=== PATIENT | male | born 1965 | race Hispanic/Latino ===

== ENCOUNTER 2017-08-20 04:46 | Emergency (ER) | payer SELFPAY ==
[2017-08-20] MEDS ORDERED: FLUORESCEIN SODIUM 0.6 MG/WRAP ONE (05:19)
[2017-08-20] MEDS ORDERED: TETRACAINE HCL 0.5% 2ML OPTH ONE (05:19)
--- NOTE | 2017-08-20 05:24 | EDPHYS ---
Physician Documentation [facility] Name: Micah Howard Age: 52 yrs Sex: Male : 1965 Arrival Date: 08/20/2017 Time: 04:47 Bed 5 Private MD: Kirti Forbes ED Physician Ramin Gregorio HPI: 08/20 05:18 This 52 yrs old Male presents to ER via Ambulatory with complaints of Eye Pain pkl - Left. 05:18 The patient sustained a scratch. Onset: The symptoms/episode began/occurred yesterday. pkl Historical: - Allergies: 04:56 NKDA; bb - Home Meds: 04:56 None [Active]; bb - PMHx: 04:56 None; bb - PSHx: 04:56 None; bb - Immunization history:: Adult Immunizations unknown. - Social history:: Smoking status: Patient uses tobacco products, smokes one-half pack cigarettes per day, Patient uses alcohol, occasionally. Patient/guardian denies using street drugs. ROS: 05:18 ENT: Negative for injury, pain, and discharge. pkl 05:18 Eyes: Positive for blurry vision, pain, of the left eye. 05:18 Neck: Negative for stiffness. 05:18 Cardiovascular: Negative for chest pain. 05:18 Respiratory: Negative for cough, shortness of breath. 05:18 Abdomen/GI: Negative for abdominal pain, nausea, vomiting, and diarrhea. 05:18 Back: Negative for acute changes. 05:18 : Negative for urinary symptoms. 05:18 MS/extremity: Negative for acute changes. 05:18 Skin: Negative for rash. 05:18 Neuro: Negative for altered mental status. Exam: 05:18 Visual Acuity: I have reviewed the nursing documentation. pkl 05:18 Head/Face: Normocephalic, atraumatic. 05:18 Eyes: Conjunctiva: injected, in the left eye, Corneas: abrasion, that is moderate sized, approximately 3 mm(s), on the left, at 8 o'clock. 05:18 Neck: Exam negative for nuchal rigidity. 05:18 Cardiovascular: Rate: normal, Rhythm: regular. 05:18 Respiratory: the patient does not display signs of respiratory distress, Respirations: normal, Breath sounds: are clear throughout. 05:18 Abdomen/GI: Exam negative for acute changes. 05:18 Back: Exam negative for acute changes. 05:18 : Exam negative for acute changes. 05:18 Musculoskeletal/extremity: Exam is negative for acute changes. 05:18 Skin: Exam negative for rash. 05:18 Neuro: Orientation: is normal, Mentation: is normal, Cranial nerves: grossly normal, Motor: is normal. Vital Signs: 04:56 BP 142 / 106; Pulse 82; Resp 20 S; Temp 98.6(TE); Pulse Ox 99% on R/A; Weight 74.84 kg bb (R); Height 5 ft. 6 in. (167.64 cm) (R); Pain 9/10; 04:56 Body Mass Index 26.63 (74.84 kg, 167.64 cm) bb Visual Acuity: 05:11 Left Eye Visual acuity 20/100, Pupil size 3 mm, ; Right Eye Visual acuity 20/100, Pupil bb size 3 mm, ; Both Eyes Visual acuity 20/40; Without Lenses; MDM: 05:11 Patient medically screened. pkl 05:18 Data reviewed: vital signs, nurses notes. pkl Administered Medications: 05:11 Drug: Tetracaine Drops 0.5 % 1 drops Route: Ophthalmic; Site: left eye; bb 05:11 Drug: Fluorescein Strip 1 strip Route: Ophthalmic; Site: left eye; bb 05:18 Drug: Maxitrol 2 drops Route: Ophthalmic; Site: left eye; bb Disposition: 0218 05:23 Discharged to Home. Impression: Corneal abrasion left eye. - Condition is Stable. - Work release form, Medication Reconciliation Form, Thank You Letter, Antibiotic Education, Prescription Opioid Use form. - Follow up: Jazmin Monte MD; When: 2 - 3 days; Reason: Re-evaluation by your physician. - Problem is new. - Symptoms have improved. Signatures: Ramin Gregorio MD MD pkl Nathalia Horner, RN RN bb
--- NOTE | 2017-08-20 05:24 | ER ---
Nurse's Notes [facility] Name: Micah Howard Age: 52 yrs Sex: Male : 1965 Arrival Date: 08/20/2017 Time: 04:47 Bed 5 Private MD: Kirti Forbes Diagnosis: Corneal abrasion left eye Presentation: 08/20 04:53 Presenting complaint: Patient states: he got hit in the eye yesterday while playing bb kickball he thought it was just sore but when he woke up this morning it was really hurting. Transition of care: patient was not received from another setting of care. Mechanism of Injury: got hit in the eye. The patient denies any loss of vision. Onset of symptoms was August 20, 2017. Care prior to arrival: None. 04:53 Method Of Arrival: Ambulatory bb 04:53 Acuity: JACKSON 4 bb Historical: - Allergies: 04:56 NKDA; bb - Home Meds: 04:56 None [Active]; bb - PMHx: 04:56 None; bb - PSHx: 04:56 None; bb - Immunization history:: Adult Immunizations unknown. - Social history:: Smoking status: Patient uses tobacco products, smokes one-half pack cigarettes per day, Patient uses alcohol, occasionally. Patient/guardian denies using street drugs. Screenin:55 Abuse screen: Denies threats or abuse. Nutritional screening: No deficits noted. bb Tuberculosis screening: No symptoms or risk factors identified. Fall Risk None identified. Assessment: 04:55 General: Appears uncomfortable, Behavior is calm, cooperative. Pain: Complains of pain bb in left eye Pain currently is 9 out of 10 on a pain scale. Neuro: Level of Consciousness is awake, alert, obeys commands, Oriented to person, place, time, situation. Cardiovascular: No deficits noted. Respiratory: Respiratory effort is even, unlabored. EENT: Eyes are tearing on left eye Sclera/Cornea w/ abrasion noted on cornea. Musculoskeletal: Capillary refill < 3 seconds. 05:40 Reassessment: Patient is alert, oriented x 3, equal unlabored respirations, skin bb warm/dry/pink. verbalized understanding of and agrees to plan of care discharge instructions given pt ambulated with steady gait to exit Patient states feeling better. Vital Signs: 04:56 BP 142 / 106; Pulse 82; Resp 20 S; Temp 98.6(TE); Pulse Ox 99% on R/A; Weight 74.84 kg bb (R); Height 5 ft. 6 in. (167.64 cm) (R); Pain 9/10; 04:56 Body Mass Index 26.63 (74.84 kg, 167.64 cm) bb Visual Acuity: 05:11 Left Eye Visual acuity 20/100, Pupil size 3 mm, ; Right Eye Visual acuity 20/100, Pupil bb size 3 mm, ; Both Eyes Visual acuity 20/40; Without Lenses; ED Course: 04:47 Patient arrived in ED. am2 04:47 Kirti Forbes MD is Private Physician. am2 04:55 Triage completed. bb 04:55 Patient has correct armband on for positive identification. bb 04:55 No provider procedures requiring assistance completed. Patient did not have IV access bb during this emergency room visit. 04:56 Arm band placed on right wrist. Patient placed in an exam room, on a stretcher. bb 05:11 Ramin Gregorio MD is Attending Physician. pkl 05:23 Jazmin Monte MD is Referral Physician. pkl Administered Medications: 05:11 Drug: Tetracaine Drops 0.5 % 1 drops Route: Ophthalmic; Site: left eye; bb 05:11 Drug: Fluorescein Strip 1 strip Route: Ophthalmic; Site: left eye; bb 05:18 Drug: Maxitrol 2 drops Route: Ophthalmic; Site: left eye; bb Outcome: 05:23 Discharge ordered by MD. pkl 05:47 Discharged to home ambulatory. bb 05:47 Condition: stable 05:47 Discharge instructions given to patient, Instructed on discharge instructions, follow up and referral plans. medication usage, Demonstrated understanding of instructions, follow-up care, medications. 05:47 Patient left the ED. bb Signatures: Ramin Gregorio MD MD pkNathalia May RN RN Claudia Serra am2
[2017-08-20] MEDS ORDERED: NEO/POLY/DEX OPTH 5 ML BOT ONE (05:38)
== END 2017-08-20 05:47 | disposition home or self-care (01) ==
LOC: ER 04:46
DX: S05.02XA Injury of conjunctiva and corneal abrasion without foreign body, left eye, initial encounter (principal); F17.210 Nicotine dependence, cigarettes, uncomplicated; X58.XXXA Exposure to other specified factors, initial encounter
CPT/HCPCS: 99283

== ENCOUNTER 2021-06-12 09:46 | Emergency (ER) | payer SELFPAY ==
[2021-06-12 12:08] LABS: SARS-COV-2 RT PCR POSITIVE (NEGATIVE)
--- NOTE | 2021-06-12 12:28 | EDPHYS ---
Physician Documentation [facility] Name: Micah Howard Age: 56 yrs Sex: Male : 1965 Arrival Date: 06/12/2021 Time: 09:47 Bed 11 Private MD: ED Physician Marky Burgos HPI: 06/12 10:26 This 56 yrs old Male presents to ER via Ambulatory with complaints of Cough, jmm Congestion. 10:26 The patient or guardian reports cough. Onset: The symptoms/episode began/occurred jmm gradually, 1.5 week(s) ago. Modifying factors: The symptoms are alleviated by nothing, the symptoms are aggravated by nothing. Associated signs and symptoms: Pertinent negatives: fever. It is unknown whether or not the patient has had similar symptoms in the past. Historical: - Allergies: 10:12 NKDA; doshi - Home Meds: 10:12 None [Active]; doshi - PMHx: 10:12 None; doshi - PSHx: 10:12 None; doshi - Immunization history:: Adult Immunizations up to date. - Social history:: Smoking status: Reported history of juuling and/or vaping. ROS: 10:26 Constitutional: Negative for fever, chills, and weight loss, Cardiovascular: Negative jmm for chest pain, palpitations, and edema. 10:26 Respiratory: Positive for cough. jmm 10:26 All other systems are negative. Exam: 10:26 Constitutional: This is a well developed, well nourished patient who is awake, alert, jmm and in no acute distress. Head/Face: atraumatic. Eyes: EOMI, no conjunctival erythema appreciated ENT: Moist Mucus Membranes Neck: Trachea midline, Supple Chest/axilla: Normal chest wall appearance and motion. Cardiovascular: Regular rate and rhythm. No edema appreciated Respiratory: Normal respirations, no respiratory distress appreciated Abdomen/GI: Non distended, soft Back: Normal ROM Skin: General appearance color normal MS/ Extremity: Moves all extremities, no obvious deformities appreciated, no edema noted to the lower extremities Neuro: Awake and alert, normal gait Psych: Behavior is normal, Mood is normal, Patient is cooperative and pleasant Vital Signs: 10:10 BP 125 / 84; Pulse 72; Resp 18; Temp 97.1(T); Pulse Ox 100% on R/A; Weight 74.84 kg; doshi Height 5 ft. 4 in. (162.56 cm); 10:10 Body Mass Index 28.32 (74.84 kg, 162.56 cm) doshi MDM: 10:26 [facility]. [facility] 12:26 Data reviewed: vital signs, nurses notes. Counseling: I had a detailed discussion with susan the patient and/or guardian regarding: the historical points, exam findings, and any diagnostic results supporting the discharge/admit diagnosis, lab results, the need for outpatient follow up, to return to the emergency department if symptoms worsen or persist or if there are any questions or concerns that arise at home. ED course: Patient is alert and non toxic in appearance in the ED. No signs of resp distress. Patient advised to follow up with pcp and otherwise given strict return precautions. Patient understood and agrees with the plan of care. . 06/12 10:26 Order name: COVID-19/FLU A+B (Document "Date of Onset" if Symptomatic); Complete Time: [facility] 12:29 Administered Medications: No medications were administered Disposition: 15:25 Co-signature as Attending Physician, Marky Burgos MD I agree with the assessment and rn plan of care. Attestation: The patient's history, exam findings, diagnostics, and a summary of any interventions or procedures was reviewed in detail with Yunior MCNAMARA. Disposition Summary: 06/12/21 12:27 Discharge Ordered [facility]: Home [facility] Condition: Stable [facility] Diagnosis - Coronavirus infection, unspecified [facility] Followup: [facility] - With: Private Physician - When: 2 - 3 days - Reason: Recheck today's complaints, Continuance of care, Re-evaluation by your physician Discharge Instructions: - Discharge Summary Sheet [facility] - COVID-19 [facility] Forms: - Medication Reconciliation Form [facility] - Thank You Letter [facility] - Antibiotic Education [facility] - Prescription Opioid Use [facility] Prescriptions: - albuterol sulfate 90 mcg/actuation Inhalation HFA aerosol inhaler - inhale 2 puff by INHALATION route every 6 hours; 1 Pump; Refills: 0, Product [facility] Selection Permitted - Bromfed DM 2-30-10 mg/5 mL Oral syrup - take 10 milliliter by ORAL route every 4 hours; 200 milliliter; Refills: 0, [facility] Product Selection Permitted Signatures: Dispatcher [employer] Yunior Perdomo, PA PA jmm Burgos, Marky, MD MD rn Roxie-Alexandra Alberto RN RN doshi
--- NOTE | 2021-06-12 12:28 | ER ---
Nurse's Notes [facility] Name: Micah Howard Age: 56 yrs Sex: Male : 1965 Arrival Date: 06/12/2021 Time: 09:47 Bed 11 Private MD: Diagnosis: Coronavirus infection, unspecified Presentation: 06/12 10:10 Chief complaint: Patient states: cough and congestion x 2 weeks, stuffy nose. doshi Coronavirus screen: Vaccine status: Patient reports receiving the 2nd dose of the covid vaccine. Ebola Screen: Patient denies travel to an Ebola-affected area in the 21 days before illness onset. Initial Sepsis Screen: Does the patient meet any 2 criteria? No. Patient's initial sepsis screen is negative. Does the patient have a suspected source of infection? No. Patient's initial sepsis screen is negative. Risk Assessment: Do you want to hurt yourself or someone else? Patient reports no desire to harm self or others. Onset of symptoms was May 25, 2021. 10:10 Method Of Arrival: Ambulatory doshi 10:10 Acuity: JACKSON 4 doshi Historical: - Allergies: 10:12 NKDA; doshi - Home Meds: 10:12 None [Active]; doshi - PMHx: 10:12 None; doshi - PSHx: 10:12 None; doshi - Immunization history:: Adult Immunizations up to date. - Social history:: Smoking status: Reported history of juuling and/or vaping. Screenin:25 Abuse screen: Denies threats or abuse. Denies injuries from another. Nutritional ss screening: No deficits noted. Tuberculosis screening: Never had TB. Fall Risk None identified. Assessment: 10:25 General: Appears in no apparent distress. comfortable, Behavior is calm, cooperative. ss Neuro: Level of Consciousness is awake, alert, obeys commands. Cardiovascular: Capillary refill < 3 seconds is brisk in bilateral fingers. Respiratory: Airway is patent Respiratory effort is even, unlabored, Respiratory pattern is regular, symmetrical. Respiratory: Reports cough that is dry, hacking, since x 2 weeks Breath sounds are clear bilaterally. GI: Patient currently denies abdominal pain, diarrhea, nausea, vomiting. EENT: Nares are clear Oral mucosa is moist. Derm: Skin is intact, is healthy with good turgor, Skin is dry, Skin is pink, warm \T\ dry. normal. Musculoskeletal: Circulation, motion, and sensation intact. Range of motion: intact in all extremities, Swelling absent. Vital Signs: 10:10 BP 125 / 84; Pulse 72; Resp 18; Temp 97.1(T); Pulse Ox 100% on R/A; Weight 74.84 kg; doshi Height 5 ft. 4 in. (162.56 cm); 10:10 Body Mass Index 28.32 (74.84 kg, 162.56 cm) doshi ED Course: 09:47 Patient arrived in ED. as 10:12 Triage completed. doshi 10:13 Yunior Lacy PA is PHCP. eugenia 10:13 Marky Burgos MD is Attending Physician. [facility] 10:25 Patient has correct armband on for positive identification. Bed in low position. Call ss light in reach. 12:22 Cammy Rizvi, GARRETT is Primary Nurse. ss 12:42 No provider procedures requiring assistance completed. Patient did not have IV access ss during this emergency room visit. Administered Medications: No medications were administered Outcome: 12:27 Discharge ordered by MD. [facility] 12:42 Discharged to home ambulatory, with family. ss 12:42 Condition: good 12:42 Discharge instructions given to patient, family, Instructed on discharge instructions, follow up and referral plans. medication usage, Demonstrated understanding of instructions, follow-up care, medications, Prescriptions given X 2. 12:50 Patient left the ED. ss Signatures: Yunior Lacy PA PA jmm Martinez, Amelia as Smirch, Shelby, RN RN Roxie-StagerAlexandra RN RN
[2021-06-12 15:28] VITALS: BP 125/84; TEMP 97.1; O2SAT 100
== END 2021-06-12 12:50 | disposition home or self-care (01) ==
LOC: ER 09:46
DX: U07.1 COVID-19 (principal)
CPT/HCPCS: 0240U; 99282

== ENCOUNTER 2024-09-15 17:30 | Emergency (ER) | payer OTHER, SELFPAY ==
--- OUTSIDE RECORDS SUMMARY | 2024-09-15 17:37 | XMS REPORT | Continuity of Care Document ---
Author Name Unknown Address [address] [facility] [address] [place] [address] [facility] [place] Address [address] [facility] [place] [address] Care Team Providers Care Supervisor Power Reactor Name Role Phone RAMIREZ GRUBBS Primary Care Physician Unavailab Ramirez Valentine Attending Clinician Unavailable ALEXANDER KOHLER Attending Clinician Unavail able ALEXANDER KOHLER Attending Clinician Unavail able Doctor Unassigned, [place] Attending Clinician U Alexander Marks MD Attending Clinician SAM ESPARZA Attending Clinician Unavailable Lab, Ang - Db Attending Clinician Unavailable Payers Payer Name Policy Type Policy Number Effective Date Expirati on Date Source [facility] PPO/POS [id number] 2021 00:00:[address] 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 Erectile disorder Problem [facility] No known active problems No known active problems Disease [facility] Allergies, Adverse Reactions, Alerts Allergy Name Allergy Type Status Severity Reaction(s) Onset Date Inactive Date Treating Clinician Comments Source NO KNOWN ALLERGIE S Drug Class Active [facility] Social History Social Habit Start Date Stop Date Quantity Comments Source History of Tobacco Use [facility] Sex Assigned At [facility] Gender identity [facility] Sexual orientation U [facility] Exposure to SARS-CoV-2 (event) 2022-02-10 00:00:00 2022-02-20 12:50:00 Not sure [facility] Smoking Status Start Date Stop Date Source Tobacco smoking consumption unknown [facility] Former Smoker 2024-04-14 00:00:00 2024-04-14 00:00:00 [facility] Medications Ordered Medication Name Filled Medication Name Start Date Stop Date Current Medication? Ordering Clinician Indication Dosage Frequency Signature (SIG) Comments Components Source methylPREDN ISolone 4 MG methylPREDN ISolone 4 MG 2 00:00: 00 06-29 00:00 :00 No QD methylPRED NISolone 4 MG methylPREDN ISolone 4 MG methylPREDN ISolone 4 MG 06-23 00:00: 00 06-29 00:00 :00 No QD methylPRED NISolone 4 MG rOPINIRole 0.25 mg tablet 2021-05 0 00:00: 00 Yes [id number] .25mg Take 1 tablet by mouth in the morning and 1 tablet at noon and 1 tablet in the evening. After one week, may take 2 PO BID. [facility] Sildenafil Citrate 50 MG Sildenafil Citrate 50 MG 11-09 00:00: 00 01-08 00:00 :00 No 1{table t_as_ne eded} QD Sildenafil Citrate 50 MG traMADOL (ULTRAM) 50 mg tablet 2016-05 00:00: 00 Yes 50mg Take 1 tablet by mouth every 6 (six) hours as needed for Pain (scale 4-6). [facility] cyclobenzap rine 5 mg tablet 2017-1 2-30 00:00: 00 Yes 5mg Take 1 tablet by mouth 3 (three) times daily. [facility] No Known Medications No Known Medications No [facility] Immunizations Ordered Immunization Name Filled Immunization Name Date Status Comments Source Fluarix (IIV4) - SDS - 0.5mL Fluarix (IIV4) - SDS - 0.5mL Unknown Completed [facility] Fluarix (IIV4) - SDS - 0.5mL Fluarix (IIV4) - SDS - 0.5mL Unknown Completed [facility] Fluarix (IIV4) - SDS - 0.5mL Fluarix (IIV4) - SDS - 0.5mL Unknown Completed [facility] Fluarix (IIV4) - SDS - 0.5mL Fluarix (IIV4) - SDS - 0.5mL Unknown Completed [facility] Fluarix (IIV4) - SDS - 0.5mL Fluarix (IIV4) - SDS - 0.5mL Unknown Completed [facility] Vital Signs Vital Name Observation Time Observation Value Comments S ource height 2023-03-21 16:00:00 66.0 [in_i] Comm on [facility] weight 2023-03-21 16:00:00 178.4 [lb_av] Co mmon [facility] temperature 2023-03-21 16:00:00 97.8 [degF] Com mon [facility] bmi 2023-03-21 16:00:00 28.79 kg/m2 Comm on [facility] oximetry 2023-03-21 16:00:00 97 % Commo n [facility] respiratory rate 2023-03-21 16:00:00 17 /min [facility] blood pressure systolic 2023-03-21 16:00:00 125 mm[Hg] [facility] blood pressure diastolic 2023-03-21 16:00:00 79 mm[Hg] [facility] weight 2022-06-23 11:00:00 160 [lb_av] Comm on [facility] temperature 2022-06-23 11:00:00 98.0 [degF] Com mon [facility] bmi 2022-06-23 11:00:00 25.82 kg/m2 Comm on [facility] height 2022-06-23 11:00:00 66.0 [in_i] Comm on [facility] Systolic blood pressure 2022-02-20 18:21:00 117 mm[Hg] [facility] Diastolic blood pressure 2022-02-20 18:21:00 78 mm[Hg] [facility] Heart rate 2022-02-20 18:21:00 70 /min [facility] Body height 2022-02-20 18:21:00 167.6 cm [facility] Body weight 2022-02-20 18:21:00 76.204 kg [facility] BMI 2022-02-20 18:21:00 27.12 kg/m2 [facility] Oxygen saturation in Arterial blood by Pulse oximetry 2022-02-20 18:21:00 99 /min [facility] height 2021-09-30 14:00:00 66.0 [in_i] Comm on [facility] weight 2021-09-30 14:00:00 168.8 [lb_av] Co mmon [facility] temperature 2021-09-30 14:00:00 98.4 [degF] Com mon [facility] bmi 2021-09-30 14:00:00 27.24 kg/m2 Comm on [facility] oximetry 2021-09-30 14:00:00 97 % Commo n [facility] respiratory rate 2021-09-30 14:00:00 16 /min [facility] blood pressure systolic 2021-09-30 14:00:00 127 mm[Hg] [facility] blood pressure diastolic 2021-09-30 14:00:00 86 mm[facility]Hg[facility] Procedures Procedure Date / Time Performed Performing Clinicia n Source EXTERNAL PROVIDER RECORDS 2022-11-27 05:01:00 Doctor Unassigned, [place] [facility] REFERRAL- REQUEST/RESPONSE 2022-11-02 05:01:00 Doctor Unassigned, [place] [facility] Encounters Start Date/Time End Date/Time Encounter Type Admission Type Attending [facility] Care Facility Care Department Encounter ID Source 2023-03-27 07:56:00 Outpatient Grubbs, Avnee STLMLC STLMLC [id number] [facility] 2023-03-19 08:05:00 Outpatient Grubbs, Avnee STLMLC STLMLC [id number] [facility] 2023 11:29:00 Outpatient Grubbs, Avnee STLMLC STLMLC [id number] [facility] 2023-02-08 09:19:00 Outpatient Grubbs, Avnee STLMLC STLMLC [id number] [facility] 2022-06-23 09:51:02 Outpatient Grubbs, Avnee STLMLC STLMLC [id number] [facility] 2021-10-20 10:53:02 Outpatient Grubbs, Avnee STLMLC STLMLC [id number] [facility] 2021-09-30 13:35:01 Outpatient Grubbs, Avnee STLMLC STLMLC [id number] [facility] 2024-06-12 00:00:00 2024-06-12 00:00:00 (TEL) STLMLC STLMLC [id number] [facility] 2023-04-20 15:00:00 2023-04-20 15:00:00 Outpatient ALEXANDER VAN HOWARD [facility] [id number] [facility] 2023-03-23 00:00:00 2023-03-23 00:00:00 (TEL) STLMLC STLMLC [id number] [facility] 2023-03-23 00:00:00 2023-03-23 00:00:00 (TEL) STLMLC STLMLC [id number] [facility] 2023-03-21 00:00:00 2023-03-21 00:00:00 PREV VISIT EST AGE 40-64 STLMLC STLMLC [id number] [facility] 2023-03-21 00:00:00 2023-03-21 00:00:00 (TEL) STLMLC STLMLC [id number] [facility] 2023-02-08 00:00:00 2023-02-08 00:00:00 (TEL) STLMLC STLMLC [id number] [facility] 2022-11-27 00:00:00 2022-11-27 00:00:00 Orders Only Doctor Unassigned, [place] [address]114 350.1.13.10 4.2.7.2.686 [id number] [facility] 2022-11-07 00:00:00 2022-11-07 00:00:00 Telephone Alexander Kohler [facility] [id number] 350.1.13.10 4.2.7.2.686 [id number] [facility] 2022-11-03 00:00:00 2022-11-03 00:00:00 Telephone [facility] 1..840.114 350.1.13.10 4.2.7.2.686 [id number] [facility] 2022-11-02 00:00:00 2022-11-02 00:00:00 Orders Only Doctor Unassigned, [place] [address]114 350.1.13.10 4.2.7.2.686 [id number] [facility] 2022-10-24 00:00:00 2022-10-24 00:00:00 [facility] 1..840.114 350.1.13.10 4.2.7.2.686 [id number] [facility] 2022-09-25 00:00:00 2022-09-25 00:00:00 Telephone Alexander Kohler [facility] 1.84.114 350.1.13.10 4.2.7.2.686 [id number] [facility] 2022-09-21 00:00:00 2022-09-21 00:00:00 Telephone [facility] 1.840.114 350.1.13.10 4.2.7.2.686 [id number] [facility] 2022-08-08 07:30:00 2022-08-08 07:30:00 Outpatient SAM PENNY [facility] [id number] [facility] 2022-06-23 00:00:00 2022-06-23 00:00:00 OFFICE VISIT ESTAB PT LEVEL 3 [facility] [id number] [facility] 2022-06-22 00:00:00 2022-06-22 00:00:00 (TEL) [facility] [id number] [facility] 2022-03-23 00:00:00 2022-03-23 00:00:00 Telephone Alexander Kohler [facility] 1..840.114 350.1.13.10 4.2.7.2.686 [id number] [facility] 2022-03-23 00:00:00 2022-03-23 00:00:00 (TEL) [facility] [id number] [facility] 2022-03-20 00:00:00 2022-03-20 00:00:00 Telephone [facility] 1.2.840.114 350.1.13.10 4.2.7.2.686 [id number] [facility] 2022-02-20 14:30:00 2022-02-20 14:45:00 Mechanical Test Technician Visit Lab, Randall Hernandez [facility] 1.2.840.114 350.1.13.10 4.2.7.2.686 [id number] [facility] 2022-02-20 13:20:00 2022-02-20 13:56:27 Office Visit [facility] 1.2.840.114 350.1.13.10 4.2.7.2.686 [id number] [facility] 2022-02-20 13:20:00 2022-02-20 13:56:27 Outpatient R ALEXANDER KOHLER EDIT[facility], [facility] [id number] [facility] 2021-11-09 00:00:00 2021-11-09 00:00:00 (TEL) ST[facility]C [id number] [facility] 2021-09-30 00:00:00 2021-09-30 00:00:00 OFFICE VISIT NEW PT LEVEL 3 [facility] STL[facility]C [id number] [facility] 2021-09-30 00:00:00 2021-09-30 00:00:00 (TEL) ST[facility] STL[facility]C [id number] [facility] Results Test Description Test Time Test Comments Results Result Co mments Source
--- NOTE | 2024-09-15 18:45 | RAD REPORT ---
EXAMINATION: XR Foot Right 3 View CLINICAL INDICATION: Male, 59 years old. [facility] MAIN calcaneus pain;Pain Bed: TECHNIQUE: 3 view radiographs of the right foot were obtained. COMPARISON: No prior exam. FINDINGS: No evidence of fracture or dislocation. Normal alignment. Moderate degenerative changes at the first metacarpophalangeal articulation. No other focal bone lesion. Soft tissues are unremarkable. Small calcaneal spur. No significant degenerative changes. IMPRESSION: No acute osseous abnormalities. Chronic findings as above.
--- NOTE | 2024-09-15 18:49 | ER ---
Nurse's Notes [facility] Name: Micah Howard Age: 59 yrs Sex: Male : 1965 Arrival Date: 09/15/2024 Time: 17:30 Bed IW2 Private MD: Diagnosis: Contusion of right foot Presentation: 09/15 18:09 Chief complaint: Patient states: Hit heel on concrete - pain to right heel. Coronavirus ld1 screen: At this time, the client does not indicate any symptoms associated with coronavirus-19. Ebola Screen: No symptoms or risks identified at this time. Initial Sepsis Screen: Does the patient meet any 2 criteria? No. Patient's initial sepsis screen is negative. Does the patient have a suspected source of infection? No. Patient's initial sepsis screen is negative. Risk Assessment: Do you want to hurt yourself or someone else? Patient reports no desire to harm self or others. Onset of symptoms was September 15, 2024. 18:09 Method Of Arrival: Wheelchair ld1 18:09 Acuity: JACKSON 4 ld1 Triage Assessment: 18:10 General: Appears in no apparent distress. uncomfortable, Behavior is calm, cooperative, ld1 appropriate for age. Pain: Complains of pain in right foot Pain does not radiate. Pain currently is 8 out of 10 on a pain scale. Quality of pain is described as throbbing, Pain began suddenly, Is continuous. EENT: No signs and/or symptoms were reported regarding the EENT system. Neuro: Level of Consciousness is awake, alert, obeys commands, Oriented to person, place, time, situation. Cardiovascular: Capillary refill < 3 seconds Patient's skin is warm and dry. Respiratory: Airway is patent Respiratory effort is even, unlabored. GI: Abdomen is flat, non-distended. : No signs and/or symptoms were reported regarding the genitourinary system. Derm: No signs and/or symptoms reported regarding the dermatologic system. Musculoskeletal: No signs and/or symptoms reported regarding the musculoskeletal system. Historical: - Allergies: 18:10 NKDA; ld1 - Home Meds: 18:10 None [Active]; ld1 - PMHx: 18:10 None; ld1 - PSHx: 18:10 None; ld1 - Immunization history:: Adult Immunizations up to date. - Infectious Disease History:: Denies. - Family history:: not pertinent. - Social history:: Smoking status: Patient denies any tobacco usage or history of. - Hospitalizations: : No recent hospitalization is reported. Screenin:26 [facility] ED Fall Risk Assessment (Adult) History of falling in the last 3 months, cm10 including since admission No falls in past 3 months (0 pts) Confusion or Disorientation No (0 pts) Intoxicated or Sedated No (0 pts) Impaired Gait No (0 pts) Mobility Assist Device Used No (0 pt) Altered Elimination No (0 pt) Score/Fall Risk Level 0 - 2 = Low Risk Oriented to surroundings, Maintained a safe environment, Hourly rounding (assess needs \T\ fall precautionary measures) done. Abuse screen: Denies threats or abuse. Denies injuries from another. Nutritional screening: No deficits noted. Tuberculosis screening: No symptoms or risk factors identified. Assessment: 19:28 Reassessment: Patient appears in no apparent distress at this time. Patient and/or cm10 family updated on plan of care and expected duration. Pain level reassessed. Patient is alert, oriented x 3, equal unlabored respirations, skin warm/dry/pink. Vital Signs: 18:09 BP 131 / 97; Pulse 60; Resp 18; Temp 97.8(TE); Pulse Ox 100% on R/A; Weight 77.11 kg; ld1 Height 5 ft. 6 in. ; Pain 8/10; 18:09 Body Mass Index 27.44 (77.11 kg, 167.64 cm) ld1 18:09 Pain Scale: Adult ld1 ED Course: 17:34 Patient arrived in ED. gl 17:35 Marky Burgos MD is Attending Physician. rn 18:07 XRAY Foot RIGHT 3 View In Process Unspecified. EDMS 18:10 Triage completed. ld1 18:10 Arm band placed on right wrist. ld1 19:27 Patient has correct armband on for positive identification. Provided Education on: cm10 Follow-up instructions. 19:27 No provider procedures requiring assistance completed. Patient did not have IV access cm10 during this emergency room visit. Administered Medications: 19:26 Drug: traMADol PO 50 mg PO once Route: PO; cm10 19:26 Follow up: Response: Medication administered at discharge. cm10 Medication: 19:27 VIS not applicable for this client. cm10 Outcome: 18:48 Discharge ordered by . rn 19:27 Discharged to home ambulatory, with family, cm10 19:27 Condition: good 19:27 Discharge instructions given to patient, Instructed on discharge instructions, follow up and referral plans. medication usage, Demonstrated understanding of instructions, follow-up care, medications, Prescriptions given X 1, 19:28 Patient left the ED. cm10 Signatures: Dispatcher [employer] EDMS Marky Burgos MD MD rn Sims, Lauren, RN RN ld1 Daisy Mcallister RN RN cm10 Yolanda Wilson, Reg Reg gl
--- NOTE | 2024-09-15 18:49 | EDPHYS ---
Physician Documentation [facility] Name: Micah Howard Age: 59 yrs Sex: Male : 1965 Arrival Date: 09/15/2024 Time: 17:30 Bed IW2 Private MD: ED Physician Marky Burgos HPI: 09/15 17:44 This 59 yrs old Male presents to ER via Unassigned with complaints of Foot rn Injury. 17:44 The patient presents with an injury, pain. The complaints affect the right foot. Onset: rn The symptoms/episode began/occurred 4 day(s) ago. Modifying factors: The symptoms are alleviated by elevation of extremity. Severity of symptoms: At their worst the symptoms were moderate, in the emergency department the symptoms are unchanged. Patient reports jumped off a trampoline, was barefoot, missed ball pit and landed on the ground with immediate right heel pain. Denies any pain proximal to heel/ankle/knee/back/spine/hip. Patient reports has been ambulatory but hurts to put weight on his right heel. No other injury.. Historical: - Allergies: 18:10 NKDA; ld1 - Home Meds: 18:10 None [Active]; ld1 - PMHx: 18:10 None; ld1 - PSHx: 18:10 None; ld1 - Immunization history:: Adult Immunizations up to date. - Infectious Disease History:: Denies. - Family history:: not pertinent. - Social history:: Smoking status: Patient denies any tobacco usage or history of. - Hospitalizations: : No recent hospitalization is reported. ROS: 17:44 Constitutional: Negative for fever, chills, and weight loss, Neck: Negative for injury, rn pain, and swelling, Back: Negative for injury and pain, MS/Extremity: Positive for right heel injury and pain Skin: Negative for laceration or open wound Neuro: Negative for weakness or numbness Exam: 17:44 Constitutional: This is a well developed, well nourished patient who is awake, alert, rn and in no acute distress. MS/ Extremity: Focal pain at right calcaneus. No open wounds or ecchymosis. Mild swelling. No tenderness of either malleolus or tib-fib. No tenderness or pain at Achilles. Full plantarflexion and dorsiflexion of foot. Full range of motion of the right side hip and knee. No spinal tenderness. Neuro: Awake and alert, GCS 15. Motor strength 5/5 in all extremities. Sensory grossly intact. Vital Signs: 18:09 BP 131 / 97; Pulse 60; Resp 18; Temp 97.8(TE); Pulse Ox 100% on R/A; Weight 77.11 kg; ld1 Height 5 ft. 6 in. ; Pain 8/10; 18:09 Body Mass Index 27.44 (77.11 kg, 167.64 cm) ld1 18:09 Pain Scale: Adult ld1 MDM: 17:35 Medical Screening Exam initiated rn 18:47 Differential diagnosis: fracture, sprain. Data reviewed: vital signs, nurses notes, rn radiologic studies, plain films, and as a result, I will discharge patient. Counseling: I had a detailed discussion with the patient and/or guardian regarding the historical points, exam findings, and any diagnostic results supporting the discharge/admit diagnosis, radiology results, the need for outpatient follow up, to return to the emergency department if symptoms worsen or persist or if there are any questions or concerns that arise at home. Special discussion: I discussed with the patient/guardian in detail that at this point there is no indication for admission to the hospital. It is understood, however, that if the symptoms persist or worsen the patient needs to return immediately for re-evaluation. 18:47 Independent interpretation of the following test(s) in the Emergency Department X-Ray: rn My interpretation is X-ray images right foot are negative for fracture, specifically calcaneal fracture per my interpretation.. 09/15 17:44 Order name: XRAY Foot RIGHT 3 View; Complete Time: 18:46 rn Administered Medications: 19:26 Drug: traMADol PO 50 mg PO once Route: PO; cm10 19:26 Follow up: Response: Medication administered at discharge. 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 - Prescription Opioid Use rn - Patient Portal Instructions rn - Leadership Thank You Letter rn Prescriptions: - Tramadol 50 mg Oral Tablet - take 1 tablet ORAL route every 8 hours as needed; 12 tablet; Refills: 0, rn Product Selection Permitted Signatures: Dispatcher [employer] Marky Weber MD MD rn Sims, Lauren, RN RN ld1 Daisy Mcallister RN RN cm10 Corrections: (The following items were deleted from the chart) 17:49 17:44 Constitutional: Negative for fever, chills, and weight loss, Back: Negative for rn injury and pain, MS/Extremity: Positive for right heel injury and pain Skin: Negative for laceration or open wound Neuro: Negative for weakness or numbness rn
[2024-09-15] MEDS ORDERED: TRAMADOL HCL 50 MG TAB ONE (19:24)
[2024-09-16 20:40] VITALS: BP 131/97; TEMP 97.8; O2SAT 100
== END 2024-09-15 19:28 | disposition home or self-care (01) ==
LOC: ER 17:30
DX: S90.31XA Contusion of right foot, initial encounter (principal)
CPT/HCPCS: 99283